=== PATIENT | female | born 1935 | race Caucasian/White ===

== ENCOUNTER 2018-03-03 14:11 | Outpatient (CLI) | payer MEDICARE ==
--- NOTE | 2018-03-03 15:09 | RAD ---
CHEST 2 VIEWS: Date: 03/03/18 HISTORY: Dyspnea. FINDINGS: No comparison. Cardiac silhouette is upper limits of normal in size. Pulmonary vasculature unremarkable. Mediastinum midline with aortic calcification and large hiatal hernia. No lobar consolidation, pneumothorax, or pleural fluid. Degenerative changes thoracic spine. IMPRESSION: 1. Large hiatal hernia. 2. Atherosclerosis. POS: [facility]
== END 2018-03-03 14:12 | disposition home or self-care (01) ==
LOC: RAD-FRANK 14:11
PROVIDERS: ATTEND Internal Medicine Geriatric Medicine
DX: R06.02 Shortness of breath (principal); K44.9 Diaphragmatic hernia without obstruction or gangrene; I70.90 Unspecified atherosclerosis
CPT/HCPCS: 71046